=== PATIENT | female | born 1985 | race Caucasian/White ===

== ENCOUNTER 2020-01-19 19:15 | Emergency (ER) | payer OTHER, MEDICAID ==
[2020-01-19] MEDS ORDERED: traMADol 50 MG Tab PO ONE (19:16)
--- NOTE | 2020-01-19 19:39 | EDM.PDOC ---
ED HPI GENERAL MEDICAL PROBLEM - General Chief Complaint: Lower Extremity Injury/Pain Stated Complaint: HURT LEG Time Seen by Provider: 01/19/20 19:36 Source of Information: Reports: Patient History Limitations: Reports: No Limitations - History of Present Illness INITIAL COMMENTS - FREE TEXT/NARRATIVE: Angelina tripped over a friend's elevated surface,and felt a pop on the left calf. She now has excruciating pain there,worse with weight bearing,associated with tingling - Related Data Allergies Allergy/AdvReac Type Severity Reaction Status Date / Time ketorolac [From Toradol] Allergy Nausea Verified 01/19/20 19:34 morphine Allergy Facial Verified 01/19/20 19:34 Swelling Review of Systems - Review of Systems Review Of Systems: Comprehensive ROS is negative, except as noted in HPI. ED EXAM, GENERAL - Physical Exam Exam: See Below Exam Limited By: No Limitations General Appearance: Alert, WD/WN, No Apparent Distress Extremities: Normal Inspection, Normal Range of Motion, Dagmar's Sign, Other (calf tenderness) Neurological: Alert. No: Normal Gait Departure - Departure Time of Disposition: 19:38 Disposition: Home, Self-Care 01 Condition: Good Clinical Impression: Injury of calf - Discharge Information Referrals: Lisha Carvalho, GEMOLOGIST [Primary Care Provider] - - Problem List & Annotations (1) Injury of calf SNOMED Code(s): 306979240 Code(s): S89.90XA - UNSPECIFIED INJURY OF UNSPECIFIED LOWER LEG, INIT ENCNTR Status: Acute - Problem List Review Problem List Initiated/Reviewed/Updated: Yes - Assessment/Plan Plan: YANIRA.Tramadol 50 mg tid prn
== END 2020-01-19 19:58 | disposition home or self-care (01) ==
LOC: FB.ED 19:15
DX: S89.92XA Unspecified injury of left lower leg, initial encounter (principal); Z88.5 Allergy status to narcotic agent; Z88.6 Allergy status to analgesic agent; W18.40XA Slipping, tripping and stumbling without falling, unspecified, initial encounter
CPT/HCPCS: 99283; A9270-GY

== ENCOUNTER 2020-02-13 21:38 | Emergency (ER) | payer MEDICAID ==
--- NOTE | 2020-02-13 22:02 | EDM.PDOC ---
ED HPI GENERAL MEDICAL PROBLEM - General Stated Complaint: COUGH Time Seen by Provider: 02/13/20 21:45 Source of Information: Reports: Patient History Limitations: Reports: No Limitations - History of Present Illness INITIAL COMMENTS - FREE TEXT/NARRATIVE: Patient presented to the ED because of coughing x 2day productive of yellowish phlegm. there is no associated, fever,chills or dyspnea. - Related Data Allergies Allergy/AdvReac Type Severity Reaction Status Date / Time ketorolac [From Toradol] Allergy Nausea Verified 01/19/20 19:34 morphine Allergy Facial Verified 01/19/20 19:34 Swelling Home Meds: Home Meds Benzonatate [Tessalon Perle] 100 mg PO TID #30 capsule 02/13/20 [Rx] ED ROS GENERAL - Review of Systems Review Of Systems: See Below Constitutional: Reports: No Symptoms HEENT: Reports: No Symptoms Respiratory: Reports: Cough, Sputum Cardiovascular: Reports: No Symptoms Endocrine: Reports: No Symptoms GI/Abdominal: Reports: No Symptoms : Reports: No Symptoms Musculoskeletal: Reports: No Symptoms Skin: Reports: No Symptoms ED EXAM, GENERAL - Physical Exam Exam: See Below Exam Limited By: No Limitations General Appearance: Alert, No Apparent Distress Ears: Normal External Exam, Normal Canal, Hearing Grossly Normal Nose: Normal Inspection, Nasal Drainage, Clear Rhinorrhea Throat/Mouth: Normal Inspection Head: Atraumatic, Normocephalic Neck: Normal Inspection, Supple, Non-Tender, Full Range of Motion Respiratory/Chest: No Respiratory Distress, Lungs Clear, Normal Breath Sounds, No Accessory Muscle Use Cardiovascular: Normal Peripheral Pulses, Regular Rate, Rhythm, No Edema, No Gallop GI/Abdominal: Normal Bowel Sounds, Soft, Non-Tender, No Organomegaly Back Exam: Normal Inspection, Full Range of Motion Course - Vital Signs Text/Narrative:: Robitussin AC 10 ml po x1 - Orders/Labs/Meds Meds: Medications Discontinued Medications Generic Name Dose Route Start Last Admin Trade Name Freq PRN Reason Stop Dose Admin Guaifenesin/Codeine Phosphate 10 ml 02/13/20 21:58 Robitussin Ac PO 02/13/20 21:59 NOW STA Departure - Departure Time of Disposition: 22:00 Disposition: Home, Self-Care 01 Condition: Good Clinical Impression: URI (upper respiratory infection), Acute bronchitis - Discharge Information Prescriptions: Benzonatate [Tessalon Perle] 100 mg PO TID #30 capsule Instructions: Viral Respiratory Infection, [id number] Referrals: PCP,None [Primary Care Provider] - Forms: ED Department Discharge Additional Instructions: Please read discharge instructions on URI-Viral and Acute Bronchitis Increase oral fluids Take tessalon perles 1 tablet 3 times daily as needed for coughing Follow up as needed
[2020-02-13] MEDS: Codeine/guaiFENesin 10-100 MG/5 ML Syrup 5 ML Cup PO STA (22:09)
== END 2020-02-13 22:20 | disposition home or self-care (01) ==
LOC: FB.ED 21:38
DX: J20.9 Acute bronchitis, unspecified (principal); J06.9 Acute upper respiratory infection, unspecified; Z88.6 Allergy status to analgesic agent; Z88.5 Allergy status to narcotic agent
CPT/HCPCS: 99283; A9270

== ENCOUNTER 2020-02-28 18:35 | Emergency (ER) | payer MEDICAID, OTHER ==
--- NOTE | 2020-02-28 19:10 | EDM.PDOC ---
ED HPI GENERAL MEDICAL PROBLEM - General Stated Complaint: SOB Time Seen by Provider: 02/28/20 18:35 Source of Information: Reports: Patient History Limitations: Reports: No Limitations - History of Present Illness INITIAL COMMENTS - FREE TEXT/NARRATIVE: Patient presented to the ED because of coughing,dyspnea and wheezing. for 3 weeks. She was treated with prednisone,z-mauricio,albuterol inhaler but still her symptoms didn't improve. there is no associated fever, chills, nausea,vomiting, diarrhea. - Related Data Allergies Allergy/AdvReac Type Severity Reaction Status Date / Time ketorolac [From Toradol] Allergy Nausea Verified 02/14/20 00:39 morphine Allergy Facial Verified 02/14/20 00:39 Swelling almonds Allergy throat Uncoded 02/14/20 00:40 swells tomatoes (before processing) Allergy Rash Uncoded 02/14/20 00:41 walnuts Allergy throat Uncoded 02/14/20 00:40 swells Home Meds: Home Meds Benzonatate [Tessalon Perle] 100 mg PO TID #30 capsule 02/13/20 [Rx] Cyclobenzaprine HCl 10 mg PO DAILY 02/14/20 [History] Levothyroxine [Synthroid] 50 mcg PO DAILY 02/14/20 [History] Losartan [Cozaar] 50 mg PO DAILY 02/14/20 [History] Omeprazole 40 mg PO DAILY 02/14/20 [History] Sertraline [Zoloft] 100 mg PO DAILY 02/14/20 [History] Spironolactone 50 mg PO DAILY 02/14/20 [History] amLODIPine Besylate [Norvasc] 2.5 mg PO DAILY 02/14/20 [History] hydrOXYzine HCL [Hydroxyzine HCl] 25 - 50 mg PO BEDTIME PRN 02/14/20 [History] medroxyPROGESTERone [Provera] 10 mg PO ASDIRECTED 02/14/20 [History] metFORMIN [Glucophage XR] 1,000 mg PO DAILY 02/14/20 [History] Past Medical History Cardiovascular History: Reports: Hypertension Respiratory History: Reports: Bronchitis, Recurrent Gastrointestinal History: Reports: GERD 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 ED ROS GENERAL - Review of Systems Review Of Systems: See Below Constitutional: Reports: No Symptoms HEENT: Reports: No Symptoms Respiratory: Reports: Shortness of Breath, Wheezing, Cough Cardiovascular: Reports: No Symptoms Endocrine: Reports: No Symptoms GI/Abdominal: Reports: No Symptoms : Reports: No Symptoms Musculoskeletal: Reports: No Symptoms Skin: Reports: No Symptoms Neurological: Reports: No Symptoms Psychiatric: Reports: No Symptoms ED EXAM, GENERAL - Physical Exam Exam: See Below Exam Limited By: No Limitations General Appearance: Alert, No Apparent Distress Eye Exam: Bilateral Eye: PERRL Ears: Normal External Exam, Normal Canal Nose: Normal Inspection, Normal Mucosa Throat/Mouth: Normal Inspection, Normal Lips, Normal Teeth, Normal Gums Head: Atraumatic, Normocephalic Neck: Normal Inspection, Supple, Non-Tender, Full Range of Motion Respiratory/Chest: No Respiratory Distress, Wheezing Cardiovascular: Normal Peripheral Pulses, Regular Rate, Rhythm, No Edema, No Gallop GI/Abdominal: Normal Bowel Sounds, Soft, Non-Tender, No Organomegaly Back Exam: Normal Inspection, Full Range of Motion Extremities: Normal Inspection, Normal Range of Motion, Non-Tender Neurological: Alert, Oriented, CN II-XII Intact, Normal Cognition Course - Vital Signs Text/Narrative:: CXR- COVID-pending - Orders/Labs/Meds Orders: Active Orders 24 hr Category Date Time Status Chest 1V Frontal [CR] Stat Exams 02/28/20 19:05 Ordered CORONAVIRUS COVID-19, LEE ANN Routine Lab 02/28/20 19:09 Ordered Departure - Departure Time of Disposition: 19:50 Disposition: Home, Self-Care 01 Condition: Good Clinical Impression: Acute bronchitis - Discharge Information Referrals: Lisha Carvalho, RFID TECHNICIAN [Primary Care Provider] - Additional Instructions: Please read discharge instructions on Acute bronchitis Increase oral fluids Continue your inhaler as prescribed Follow up your Covid test after 3-5 days - My Orders Last 24 Hours: My Active Orders 02/28/20 19:05 Chest 1V Frontal [CR] Stat 02/28/20 19:09 CORONAVIRUS COVID-19, LEE ANN Routine - Assessment/Plan Last 24 Hours: My Active Orders 02/28/20 19:05 Chest 1V Frontal [CR] Stat 02/28/20 19:09 CORONAVIRUS COVID-19, LEE ANN Routine
--- NOTE | 2020-02-29 11:07 | CR ---
INDICATION: Cough, dyspnea. CHEST, ONE VIEW: AP portable upright view of the chest 02/28/20 - no comparisons. The heart, mediastinum, and bony thorax were unremarkable. Detail somewhat limited due to exogenous obesity and portable nature of the study. It is difficult to exclude infiltrate at the left costophrenic angle with no other finding to suggest acute disease identified. When clinically possible, full inspiration PA and lateral views of the chest may be helpful for further evaluation. MTDD
[2020-03-01 19:01] LABS: CORNONAVIRUS (COVID19) CSH-NRL Negative (Negative)
== END 2020-02-28 19:55 | disposition home or self-care (01) ==
LOC: FB.ED 18:35
DX: J20.9 Acute bronchitis, unspecified (principal); I10 Essential (primary) hypertension; K21.9 Gastro-esophageal reflux disease without esophagitis; F41.9 Anxiety disorder, unspecified; F32.9 Major depressive disorder, single episode, unspecified; Z88.6 Allergy status to analgesic agent; Z88.5 Allergy status to narcotic agent; Z91.018 Allergy to other foods; Z79.899 Other long term (current) drug therapy; Z20.828 Contact with and (suspected) exposure to other viral communicable diseases
CPT/HCPCS: 71045; 99285-25; U0003